=== PATIENT | female | born 1935 | race Caucasian/White ===

== ENCOUNTER 2016-11-11 15:07 | Emergency (ER) | payer MEDICARE ==
[2013-02-10 13:57] VITALS: BMI 36.7
[~2016-11-11 15:07] MED LIST: ALDACTONE25 MG PO; AROMASIN25 MG PO; CALAN80 MG PO; COMBIGAN OPHT DR5 ML EACH EYE; ELAVIL25 MG PO; EX-LAX MIL400 MG/5 M PO; HUMALOG 30100 UNITS/; HUMULIN N100 U/ML SQ; IPRAT-ALBUT 0.5-3 ML UPD; LANOXIN250 MCG PO; MOBIC7.5 MG PO; NEURONTIN 300300 MG PO; NOVOLIN 70/30 110 ML SC; POTASSIUM20 MEQ/11 PO; TYLENOL 325 MG325 MG PO; ZAROXOLYN5 MG PO
[2016-11-11 16:55] LABS: BASOPHILS 0.1 % (0-2); EOSINOPHILS 2.2 % (0-7); HEMATOCRIT 33.6 % (36.0-48.0); HEMOGLOBIN 10.5 g/dL (12-16); IMMATURE GRANULOCYTES 0.1 % (0-5); MCH 27.3 pg (26.0-34.0); MCHC 31.3 g/dL (31.0-37.0); MCV 87.3 fL (80.0-100.0); MEAN PLATELET VOLUME 9.7 fL (7.4-10.4); NEUTROPHILS 39.6 % (40-80); PLATELET COUNT 343 10x3/uL (130-400); RBC 3.85 10x6/uL (4.00-5.40); WBC 7.3 10x3/uL (4.8-10.8)
[2016-11-11 17:17] LABS: APPEARANCE CLEAR (CLEAR); BILIRUBIN NEGATIVE (NEGATIVE); COLOR YELLOW (YELLOW); GLUCOSE NEGATIVE (NEGATIVE); KETONE NEGATIVE (NEGATIVE); LEUKOCYTE ESTERASE NEGATIVE (NEGATIVE); NITRITE NEGATIVE (NEGATIVE); PROTEIN NEGATIVE (NEGATIVE); SPECIFIC GRAVITY 1.005 (1.005-1.020); UROBILINOGEN NORMAL (NORMAL)
[2016-11-11 17:38] LABS: ALBUMIN 2.3 g/dL (3.4-5.0); ALKALINE PHOSPHATASE 188 U/L (46-116); ALT (SGPT) 17 U/L (10-68); BILIRUBIN - TOTAL 0.65 mg/dL (0.2-1.3); CALC OSMOLALITY 278 mosm/kg (275-300); CALCIUM 8.4 mg/dL (8.5-10.1); CARBON DIOXIDE 25.3 mmol/L (21.0-32.0); CHLORIDE - SERUM 105 mmol/L (98-107); CREATININE - SERUM 0.7 mg/dL (0.6-1.3); PROTEIN - SERUM 6.4 g/dL (6.4-8.2); SODIUM 139 mmol/L (136-145); UREA NITROGEN 7 mg/dL (7-18); eGFR NON AFRICAN AMERICAN 85 mL/min (90-120)
[2016-11-11 17:40] LABS: GLUCOSE 161 mg/dL (74-106)
== END 2016-11-11 18:58 | disposition home or self-care (01) ==
LOC: D.ER 15:07
PROVIDERS: Physician Assistant
DX: K52.9 Noninfective gastroenteritis and colitis, unspecified (principal); E11.9 Type 2 diabetes mellitus without complications; Z86.73 Personal history of transient ischemic attack (TIA), and cerebral infarction without residual deficits; R11.2 Nausea with vomiting, unspecified